=== PATIENT | male | born 1970 | race African-American/Black ===

== ENCOUNTER 2019-03-07 02:04 | Emergency (ER) | payer MEDICAID ==
[~2019-03-07] VITALS: Ht 182.9 cm; Wt 79.4 kg
[2019-03-07 02:04] VITALS: BP 117/77
--- NOTE | 2019-03-07 02:04 | NUR ---
TO BED # 08, BROUGHT IN BY [facility]BUL[facility] FOUND IN A BUS STATION, NOT FEELING WELL.
[2019-03-07 02:20] VITALS: BP 117/77
--- NOTE | 2019-03-07 02:30 | NUR ---
48 Y/O M BIBA WITH C/O "NOT FEELING WELL". UNABLE TO OBTAIN ANY MEDICAL INFORMATION AT THIS TIME. PT UNWILLING TO ANSWER ANY QUESTIONS. BED IN LOWEST POSTION. WILL CONTINUE TO MONITOR.
[2019-03-07] MEDS ORDERED: AMMONIA AROMATIC 1 INHL INH ONE (03:15)
--- NOTE | 2019-03-07 03:21 | NUR ---
PT REFUSED LAB DRAW. ERMD MADE AWARE.
--- NOTE | 2019-03-07 03:23 | NUR ---
PT VERBAL AGGRESSIVE AND UNWILLING TO ANSWER QUESTIONS
--- NOTE | 2019-03-07 03:25 | NUR ---
[place] [facility] AT BEDSIDE.
--- NOTE | 2019-03-07 03:30 | NUR ---
PT OFFERED FOOD AND BUS PASS, PT DECLINED.
--- NOTE | 2019-03-07 03:36 | NUR ---
Patient discharged with v/s stable. Written and verbal after care instructions given and explained. Patient verbalized understanding. Ambulatory with steady gait. All questions addressed prior to discharge. Advised to follow up with PMD.
== END 2019-03-07 03:36 | disposition home or self-care (01) ==
LOC: MED 02:04
DX: Z00.00 Encounter for general adult medical examination without abnormal findings (principal)
CPT/HCPCS: 82948; 99283